=== PATIENT | female | born 1990 | race Caucasian/White ===

== ENCOUNTER 2022-04-11 18:04 | Emergency (ER) | payer MEDICAID, SELFPAY ==
[2022-04-11 18:05] VITALS: BP 158/82; PULSE 119; RESP 17; TEMP 37.4; O2SAT 99; BMI 33.5
--- NOTE | 2022-04-11 18:36 | CT_ITS ---
STUDY: CTA CHEST REASON FOR EXAM: Female, 31 years old. pulmonary embolism RADIATION DOSAGE (If Supplied By Facility): CTDIvol = ( 11.38 ) mGy, DLP = ( 462.47 ) mGycm TECHNIQUE: The examination was performed with the intravenous administration of IV 100mL Isovue-370. Post-processing of the angiographic images was performed, with multiplanar reformation and 3D reconstruction. Individualized dose optimization techniques were used for this CT. COMPARISON: None. FINDINGS: 1.5 cm nodule the left lobe of the thyroid gland and correlation with thyroid ultrasound is recommended. Normal enhancement of the main pulmonary artery and right and left pulmonary arteries. Normal enhancement of the bilateral peripheral pulmonary arteries. There is no demonstrated pulmonary embolism. Normal thoracic aorta and visualized great vessels. There is no demonstrated aortic dissection. Normal heart and pericardium. Normal mediastinum. Normal hilar regions. Normal visualized trachea and bronchi. The lungs are well expanded. Normal pulmonary parenchyma. Normal pleura. Normal chest wall structures. Normal osseous structures. Normal visualized upper abdomen. CT/CTA Chest W/WO Contrast IMPRESSION: Normal CTA chest examination, without a demonstrated pulmonary embolism or arterial dissection. 1.5 cm nodule the left lobe of the thyroid gland and correlation with thyroid ultrasound is recommended Electronically Signed: Sloan Talbert MD at 19:31 EST ,
--- NOTE | 2022-04-11 18:37 | EKG12_ITS ---
Test Reason : SOB Blood Pressure : / mmHG Vent. Rate : 100 BPM Atrial Rate : 100 BPM P-R Int : 144 ms QRS Dur : 086 ms QT Int : 340 ms P-R-T Axes : 055 040 032 degrees QTc Int : 438 ms Normal sinus rhythm Normal ECG Confirmed by DONALD CASTRO, NANCY ([id number]), magazine editor PARVEZ LANTIGUA ([id number]) on 04/15/2022 11:30:46 AM Referred By: Confirmed By:NANCY BENNETT MD
[2022-04-11] MEDS: Ketorolac 30 MG/ML Syringe IV (18:47)
[2022-04-11] MEDS: Ondansetron 4 MG/2 ML Vial IV (18:47)
[2022-04-11] MEDS: Morphine 4 MG/ML Syringe IV (18:48)
[2022-04-11 18:58] LABS: Absolute Lymphocyte Count 1.33 X10^3/uL (0.83-4.51); Absolute Neutrophil Count 9.2 X10^3/uL (2.0-7.7); Basophil# 0.02 X10^3/uL; Basophil% 0.2 % (0-1); Eosinophil# 0.01 X10^3/uL; Eosinophils% 0.1 % (0-5); Hematocrit 42.8 % (37-47); Hemoglobin 13.8 g/dL (12.0-15.0); Lymphocyte # 1.33 X10^3/ul (0.83-4.51); Mean Corp Hgb Conc 32.2 g/dL (32-36); Mean Corpuscular Volume 86.8 fL (81-99); Mean Platelet Vol. 9.4 fl (6.2-12.0); Monocyte# 0.55 X10^3/uL; Monocyte% 4.9 % (0-10); NRBC Flagged by Analyzer 0 % (0-5); Neutrophil # 9.18 X10^3/uL (2.7-7.7); Neutrophil % 82.5 % (47-70); Platelet Count 350 K/mm3 (150-450); RBC Distribution Width CV 12.3 % (11.6-14.6); RBC Distribution Width SD 39.4 fl (35.1-43.9); Red Blood Count 4.93 M/mm3 (4.2-5.4); White Blood Count 11.1 K/mm3 (4.4-11.0)
--- NOTE | 2022-04-11 19:15 | EDS_ITS ---
HPI History of Present Illness Chief Complaint: Shortness of Breath Informant: patient and parent Narrative Narrative: 31-year-old female presenting to the emergency room with bilateral chest pain and shortness of breath. Patient states that she feels like she is getting ready to have a panic attack because of the inability to breathe. She woke up having pain in the bilateral chest along her bra line. Is worse with deep breathing sometimes worse with movement. She notes that she is only coughed 1 time today. She notes body aches and a slight sore throat but no significant rhinorrhea. No earache. No rashes. PFSH PFSH Medical History no medical history Home Medications hydrocodone-acetaminophen 5-325mg 5mg-325mg 1 tab PO Q6H PRN PRN Pain 3 days #12 TABLETS 04/11/22 [Rx Last Taken Unknown] levonorgestrel 0.15 mg-ethinyl estradiol 0.03 mg tablet (Altavera (28)) 1 tab PO DAILY 04/11/22 [History Last Taken Unknown] Allergy/AdvReac Type Severity Reaction Status Date / Time No Known Allergies Allergy Verified 04/11/22 18:04 Surgical History no surgical history Social History (Updated 04/11/22 @ 19:[address] Hrenandez Delgado, DO) Smoking Status: Never smoker substance use type: does not use ROS ROS ED Constitutional Constitutional ED: Denies chills or weight loss Eyes Eyes: Denies change in vision or diplopia ENT ENT ED: Reports sore throat; Denies ear pain or rhinorrhea Cardiovascular Cardiovascular: Reports chest pain; Denies orthopnea, palpitations or racing heartbeat Respiratory/Chest Respiratory/Chest: Reports dyspnea; Denies cough or orthopnea Gastrointestinal Gastrointestinal: Denies abdominal pain, diarrhea, nausea or vomiting Genitourinary Genitourinary ED: Denies dysuria, hematuria or urinary frequency Musculoskeletal Musculoskeletal: Reports myalgias; Denies arthralgias or back pain Integumentary Denies abscess or rash Neurologic Neurologic: Denies headache(s) or weakness Psychiatric Psychiatric: Denies anxiety, depression, suicidal ideation or suicidal thoughts Endocrine Endocrinology: Denies polydipsia, polyphagia or polyuria Allergic/Immunologic Allergic/Immunologic ED: Denies mouth swelling, tongue swelling or urticaria EXAM Physical Exam Const Vital Signs: 04/11/22 18:05 04/11/22 18:52 Temperature 99.4 F H Temperature Source Temporal Pulse Rate 119 H Respiratory Rate 17 Respiratory Effort Short of Breath Blood Pressure 158/82 H Blood Pressure Mean 107 Pulse Ox 99 Oxygen Delivery Method Room Air Positive well nourished and well developed General Appearance ED: well developed HEENT Reports normocephalic, head/scalp atraumatic and moist mucous membranes Eyes PERRL and EOMs intact bilaterally Neck no lymphadenopathy, supple and no JVD Chest Wall Chest Narrative: Patient reports some tenderness to palpation along the bilateral mid axillary chest wall region. Resp normal respiratory effort and clear to auscultation bilaterally Cardio regular rate, regular rhythm and no murmurs GI normal to inspection, nondistended, normoactive bowel sounds and non-tender Palpation: soft Back/Spine no CVA tenderness and normal ROM Extremity normal to inspection General Extremety ED: Negative for edema General Extremity: Negative for edema Neuro oriented x3 and CN's II-XII intact bilaterally Sensorium / Orientation: alert Motor Exam: strength 5/5 throughout Psych mental status grossly normal Mood & Affect: Negative for depressed or tearful Skin no rashes or lesions noted and no wounds MDM MDM MDM Narrative Medical decision making narrative: Basic blood work obtained showed a white count 11.1. CMP otherwise negative. KG is a normal sinus rhythm. She received Toradol and morphine and Zofran and is feeling better. CTA of the chest was obtained because of her tachycardia and her chest pain. This was negative for PE but did demonstrate a thyroid nodule which was relayed to her. The patient is overall feeling better. Given that her temperature was 99.4 and her other symptoms I think this is most likely a viral illness. I am not seeing anything emergent. I can write for some pain medication but otherwise I would expect her to make a good recovery return if worsening or concerns Lab Data Attestation: I reviewed the patient's lab results. Labs: Laboratory Results - last 24 hr 04/11/22 04/11/22 18:45 18:45 WBC 11.1 H RBC 4.93 Hgb 13.8 Hct 42.8 MCV 86.8 MCH 28.0 MCHC 32.2 RDW Std Deviation 39.4 RDW Coeff of Julianne 12.3 Plt Count 350 MPV 9.4 Immature Gran % (Auto) 0.300 Neut % (Auto) 82.5 H Lymph % (Auto) 12.0 L [place] % (Auto) 4.9 Eos % (Auto) 0.1 Baso % (Auto) 0.2 Absolute Neuts (auto) 9.2 H Absolute Lymphs (auto) 1.33 Nucleated RBC % 0 Sodium 137 Potassium 3.9 Chloride 105 Carbon Dioxide 26.0 Anion Gap 6 BUN 8 Creatinine 0.91 Estim Creat Clear Calc 80.60 Est GFR (MDRD) Af Amer 93 Est GFR (MDRD) Non-Af 77 BUN/Creatinine Ratio 8.8 L Glucose 112 H Calcium 9.3 Total Bilirubin 0.80 AST 31 ALT 65 H Alkaline Phosphatase 78 Total Protein 8.1 Albumin 3.6 Globulin 4.5 H Albumin/Globulin Ratio 0.8 L Radiography Diagnostic Testing: Clinical Impression(s) from Imaging Studies Chest CTA 04/11/22 18:36 IMPRESSION: Normal CTA chest examination, without a demonstrated pulmonary embolism or arterial dissection. 1.5 cm nodule the left lobe of the thyroid gland and correlation with thyroid ultrasound is recommended Electronically Signed: Sloan Talbert MD at 19:31 EST , EKG Initial EKG: Attestation: I personally reviewed and interpreted this EKG as follows: Comments: Normal sinus rhythm with a ventricular rate of 100 bpm Discharge Plan Triage Chief Complaint: Shortness of Breath ED Provider: Hernandez Delgado Dx/Rx/DC Orders Clinical Impression: Acute viral syndrome, Chest pain Instructions: ED Viral Syndrome (Adult) Prescriptions: New hydrocodone-acetaminophen [hydrocodone-acetaminophen] 5-325 mg tablet 1 tab PO Q6H PRN PRN (Reason: Pain) 3 Days Qty: 12 0RF No Action levonorgestrel-ethinyl estrad [Altavera (28)] 0.15-0.03 mg tablet 1 tab PO DAILY Primary Care Provider: GUILLAUME MARTINEZ Referrals: GUILLAUME MARTINEZ [Other] Disposition Disposition: Home, Self Care
[2022-04-11 19:54] LABS: ALB/GLOB Ratio 0.8 RATIO (0.9-2.4); AST(SGOT) 31 U/L (15-37); Alanine Aminotransfer ALT/SGPT 65 U/L (13-56); Albumin, Serum 3.6 g/dL (3.2-5.0); Alkaline Phosphatase 78 U/L (45-117); Anion Gap 6 (5-15); BUN 8 mg/dL (7-18); BUN/Creat Ratio 8.8 RATIO (10-20); Calcium,Total 9.3 mg/dL (8.5-10.1); Chloride 105 mmol/L (98-107); Creatinine, Serum 0.91 mg/dL (0.55-1.02); EST Glomerular Filtration Rate 77 mL/min (>60); Est Glom Filt Rate - Afr Amer 93 mL/min (>60); Globulin 4.5 g/dL (2.2-4.2); Glucose 112 mg/dL (74-106); Potassium 3.9 mmol/L (3.5-5.1); Protein, Total 8.1 g/dL (6.4-8.2); Sodium Level 137 mmol/L (136-145)
--- NOTE | 2022-04-11 20:38 | ED.RN ---
called CT to inquire about CTA results.
--- NOTE | 2022-04-28 10:25 | CASEMGMT ---
INCIDENTAL FINDING FOLLOW-UP: TC to pt. Pt stated she's been doing great since her ED visit on 04/11/22. Pt said the Physician told her to follow-up with her PCP regarding a thyroid nodule. Pt thanked Navigator for calling and stated she actually forgot about the nodule and scheduling so this was a good reminder. Pt denied any assistance needed in making the appointment and stated she will make if once off the phone.
== END 2022-04-11 21:08 | disposition home or self-care (01) ==
PROVIDERS: Emergency Provider Emergency Medicine; Visit Provider Emergency Medicine
DX: B34.9 Viral infection, unspecified (principal); R07.9 Chest pain, unspecified; R06.02 Shortness of breath; J02.9 Acute pharyngitis, unspecified; R00.0 Tachycardia, unspecified
CPT/HCPCS: 71275; 80053; 85025; 87428; 87807; 93005; 96374; 96375; 99284; Q9967; A4216; J2405